=== PATIENT | female | born 1945 | race African-American/Black ===

== ENCOUNTER 2022-12-09 15:25 | Inpatient (IN) | payer MEDICARE ==
[2022-12-09 15:52] LABS: #Lymphocytes 0.6 thou/uL (1.20-3.40); #Monocytes 0.2 thou/uL (0.11-0.59); #Neutrophils 0.7 thou/uL (1.40-6.50); %Basophils 0.4 % (0.0-1.0); %Eosinophils 0.8 % (0.0-10.0); %Lymphocytes 38.9 % (21.0-51.0); %Monocytes 13.8 % (0.0-10.0); %Neutrophils 46.1 % (42.0-75.0); Hemoglobin 7.6 g/dL (12.0-16.0); Mean Corpuscular HGB CONC 33.6 g/dL (32.0-36.0); Mean Corpuscular Hemoglobin 30.7 pg (27.0-31.0); Mean Corpuscular Volume 91.2 fl (78.0-98.0); Mean Platelet Volume 15.9 fL (7.4-10.4); Platelet Count 23 10x3/uL (130-400); RBC Distribution Width 16.2 % (11.5-14.5); Red Blood Cell (RBC) Count 2.47 mill/uL (4.20-5.40); White Blood Cell (WBC) Count 1.5 10x3/uL (4.8-10.8)
[2022-12-09 16:12] LABS: Anisocytosis SLIGHT = 6-15 cells (100X) (0-5/hpf); MDiff Complete? YES; Platelet Morphology Comment Appears Decreased; Polychromasia SLIGHT = 2-3 cells (100X) (0-2/hpf); Reflex for Review?? YES; Schistocytes SLIGHT = 2-5 cells (100X) (0-1/hpf); Tear Drops SLIGHT = 2-5 cells (100X) (0-1/hpf)
[2022-12-09 16:15] LABS: ALT (SGPT) 11 U/L (8-55); AST (SGOT) 26 U/L (5-34); Albumin 3.4 g/dL (3.4-4.8); Alkaline Phosphatase 54 U/L (40-110); Anion Gap 13 mmol/L (10-20); BUN (Urea Nitrogen) 17 mg/dL (9.8-20.1); Bilirubin, Total 0.8 mg/dL (0.2-1.2); Calc. Creatinine Clearance 0 mL/min (70-130); Calcium 8.4 mg/dL (7.8-10.44); Carbon Dioxide 27 mmol/L (23-31); Chloride 95 mmol/L (98-107); Estimated GFR 9; Glucose 172 mg/dL (83-110); Potassium 3.1 mmol/L (3.5-5.1); Protein, Total 7.4 g/dL (5.8-8.1); Sodium 132 mmol/L (136-145)
[2022-12-09 16:34] LABS: CKMB 1.4 ng/mL (0-6.6)
[2022-12-09] MEDS ORDERED: Dextrose 50% Abboject 50 ML SYRINGE SLOW IVP PRN (20:13)
[2022-12-09] MEDS ORDERED: Dextrose 5% in Water 1,000 ML IV PRN (20:13)
[2022-12-09] MEDS ORDERED: HumaLOG 300 UNITS/3 ML VIAL SC PRN (20:13)
[2022-12-09 21:14] LABS: Iron 66 ug/dL (50-170); Iron Binding Capacity, Total 151 mcg/dL (265-497)
[2022-12-09 21:37] LABS: CKMB 0.9 ng/mL (0-6.6)
[2022-12-09 23:48] LABS: Hep B Surf Ag Non-Reactive S/CO (NonReactive)
[2022-12-09 23:49] LABS: HBSAg Index 0.23 S/CO (0-0.99)
[2022-12-09 23:50] LABS: HBSAB Concentration Less than 8.00 mIU/mL; Hep B Surf AB Non-Reactive (NonReactive)
[2022-12-10 00:25] LABS: Vitamin B12 Greater than 2000 pg/mL (211-911)
[2022-12-10] MEDS ORDERED: Zolpidem Tartrate 5 MG TAB PO SCH ×2 (01:00→02:00)
[2022-12-10] MEDS ORDERED: Zolpidem Tartrate 5 MG TAB ONE (01:06)
[2022-12-10 02:42] LABS: Ferritin 597.23 ng/mL (10-291)
[2022-12-10 03:01] LABS: Hep B Core Total Ab Reactive (NonReactive); Hep B Core Total Index 8.37 S/CO (0-0.79)
[2022-12-10 06:33] LABS: ALT (SGPT) 10 U/L (8-55); AST (SGOT) 22 U/L (5-34); Albumin 2.9 g/dL (3.4-4.8); Alkaline Phosphatase 47 U/L (40-110); Anion Gap 9 mmol/L (10-20); BUN (Urea Nitrogen) 8 mg/dL (9.8-20.1); Bilirubin, Total 1.1 mg/dL (0.2-1.2); Calc. Creatinine Clearance 0 mL/min (70-130); Calcium 7.9 mg/dL (7.8-10.44); Carbon Dioxide 28 mmol/L (23-31); Chloride 100 mmol/L (98-107); Estimated GFR 18; Globulin 3.4 g/dL (2.4-3.5); Glucose 132 mg/dL (83-110); Hemoglobin 9.7 g/dL (12.0-16.0); Mean Corpuscular Hemoglobin 30.6 pg (27.0-31.0); Mean Corpuscular Volume 92.8 fl (78.0-98.0); Mean Platelet Volume 15.2 fL (7.4-10.4); Platelet Count 22 10x3/uL (130-400); Potassium 3.3 mmol/L (3.5-5.1); Protein, Total 6.3 g/dL (5.8-8.1); RBC Distribution Width 15.4 % (11.5-14.5); Red Blood Cell (RBC) Count 3.15 mill/uL (4.20-5.40); Sodium 134 mmol/L (136-145); White Blood Cell (WBC) Count 1.4 10x3/uL (4.8-10.8)
[2022-12-10 06:55] LABS: CKMB 0.7 ng/mL (0-6.6)
[2022-12-10 06:56] LABS: Band 8 % (5-11); Lymphocytes 30 % (21-51); Metamyelocyte 1 % (0-0); Monocytes 5 % (0-10); Neutrophil 56 % (42-75)
[2022-12-10] MEDS ORDERED: Aspirin Chewable 81 MG TAB ONE (07:57)
[2022-12-10 08:24] LABS: MDiff Complete? YES
[2022-12-10] MEDS: Aspirin Chewable 81 MG TAB PO SCH (09:09)
[2022-12-10] MEDS ORDERED: Acetaminophen 325 MG TAB PO SCH (15:15)
[2022-12-10] MEDS ORDERED: tiZANidine HCl 4 MG TAB PO PRN (18:02)
[2022-12-10] MEDS: Carvedilol 25 MG TAB PO SCH (21:04)
[2022-12-10] MEDS: Zolpidem Tartrate 5 MG TAB PO PRN (21:05)
[2022-12-10] MEDS: Insulin Glargine 30 UNITS/0.3 ML VIAL SC SCH (21:05)
[2022-12-11 07:34] LABS: Hemoglobin 9.1 g/dL (12.0-16.0); Mean Corpuscular HGB CONC 34.1 g/dL (32.0-36.0); Mean Corpuscular Hemoglobin 31.6 pg (27.0-31.0); Mean Corpuscular Volume 92.5 fl (78.0-98.0); RBC Distribution Width 15.6 % (11.5-14.5); Red Blood Cell (RBC) Count 2.87 mill/uL (4.20-5.40)
[2022-12-11 07:37] LABS: Anion Gap 11 mmol/L (10-20); BUN (Urea Nitrogen) 15 mg/dL (9.8-20.1); Calc. Creatinine Clearance 19 mL/min (70-130); Calcium 8.1 mg/dL (7.8-10.44); Carbon Dioxide 27 mmol/L (23-31); Chloride 101 mmol/L (98-107); Estimated GFR 15; Glucose 141 mg/dL (83-110); Potassium 3.2 mmol/L (3.5-5.1); Sodium 136 mmol/L (136-145)
[2022-12-11 07:54] LABS: Phosphorus 1.5 mg/dL (2.3-4.7)
[2022-12-11 08:11] LABS: Anisocytosis SLIGHT = 6-15 cells (100X) (0-5/hpf); Band 4 % (5-11); Eosinophils 2 % (0-10); Hypochromia SLIGHT = 6-15 cells (100X) (0-5/hpf); Lymphocytes 55 % (21-51); MDiff Complete? YES; Mean Platelet Volume 15.5 fL (7.4-10.4); Monocytes 2 % (0-10); Neutrophil 37 % (42-75); Platelet Count 19 10x3/uL (130-400); Platelet Morphology Comment Appears Decreased; White Blood Cell (WBC) Count 1.5 10x3/uL (4.8-10.8)
[2022-12-11] MEDS ORDERED: PHOS-NAK 1 PKT PACK PO SCH (08:45)
[2022-12-11] MEDS: Aspirin Chewable 81 MG TAB PO SCH (08:52)
[2022-12-11] MEDS: Carvedilol 25 MG TAB PO SCH ×2 (08:52→21:20)
[2022-12-11] MEDS: NIFEdipine XL 60 MG TAB PO SCH (08:52)
[2022-12-11] MEDS ORDERED: Potassium Chloride 20 MEQ TAB PO SCH (10:30)
[2022-12-11] MEDS: hydrALAZINE 25 MG TAB PO SCH ×2 (14:11→21:19)
[2022-12-11] MEDS: Insulin Glargine 30 UNITS/0.3 ML VIAL SC SCH (21:22)
[2022-12-11] MEDS: Zolpidem Tartrate 5 MG TAB PO PRN (23:18)
[2022-12-12 05:09] LABS: Anion Gap 11 mmol/L (10-20); BUN (Urea Nitrogen) 21 mg/dL (9.8-20.1); Calc. Creatinine Clearance 15 mL/min (70-130); Calcium 8.2 mg/dL (7.8-10.44); Carbon Dioxide 26 mmol/L (23-31); Chloride 100 mmol/L (98-107); Estimated GFR 11; Glucose 175 mg/dL (83-110); Potassium 3.4 mmol/L (3.5-5.1); Sodium 134 mmol/L (136-145)
[2022-12-12 05:31] LABS: Anisocytosis SLIGHT = 6-15 cells (100X) (0-5/hpf); Band 6 % (5-11); Eosinophils 2 % (0-10); Hemoglobin 8.7 g/dL (12.0-16.0); Lymphocytes 34 % (21-51); MDiff Complete? YES; Mean Corpuscular HGB CONC 33.4 g/dL (32.0-36.0); Mean Corpuscular Hemoglobin 31.3 pg (27.0-31.0); Mean Corpuscular Volume 93.7 fl (78.0-98.0); Mean Platelet Volume 16.3 fL (7.4-10.4); Monocytes 8 % (0-10); Neutrophil 50 % (42-75); Platelet Count 18 10x3/uL (130-400); Platelet Morphology Comment Appears Decreased; RBC Distribution Width 15.8 % (11.5-14.5); Red Blood Cell (RBC) Count 2.77 mill/uL (4.20-5.40); White Blood Cell (WBC) Count 1.4 10x3/uL (4.8-10.8)
[2022-12-12] MEDS: NIFEdipine XL 60 MG TAB PO SCH (17:17)
[2022-12-12] MEDS: hydrALAZINE 25 MG TAB PO SCH ×3 (17:18→20:53)
[2022-12-12] MEDS: Aspirin Chewable 81 MG TAB PO SCH (17:18)
[2022-12-12] MEDS: Carvedilol 25 MG TAB PO SCH ×2 (17:19→20:54)
[2022-12-12] MEDS: Insulin Glargine 30 UNITS/0.3 ML VIAL SC SCH (20:52)
[2022-12-12] MEDS: Zolpidem Tartrate 5 MG TAB PO PRN (20:53)
[2022-12-13 05:43] LABS: Anion Gap 13 mmol/L (10-20); BUN (Urea Nitrogen) 14 mg/dL (9.8-20.1); Calc. Creatinine Clearance 21 mL/min (70-130); Calcium 8.1 mg/dL (7.8-10.44); Carbon Dioxide 21 mmol/L (23-31); Chloride 100 mmol/L (98-107); Estimated GFR 17; Glucose 141 mg/dL (83-110); Potassium 4.1 mmol/L (3.5-5.1); Sodium 130 mmol/L (136-145)
[2022-12-13] MEDS: hydrALAZINE 25 MG TAB PO SCH ×3 (08:19→20:21)
[2022-12-13] MEDS: NIFEdipine XL 60 MG TAB PO SCH (08:20)
[2022-12-13] MEDS: Carvedilol 25 MG TAB PO SCH ×2 (08:20→20:21)
[2022-12-13] MEDS: Aspirin Chewable 81 MG TAB PO SCH (08:20)
[2022-12-13 12:05] LABS: Hep C IgG Ab Non-Reactive (NonReactive); Hep C Index 0.29 S/CO (0-0.79)
[2022-12-13] MEDS: Zolpidem Tartrate 5 MG TAB PO PRN (20:21)
[2022-12-13] MEDS: Insulin Glargine 30 UNITS/0.3 ML VIAL SC SCH (20:22)
[2022-12-14] MEDS: Acetaminophen 325 MG TAB PO PRN ×2 (02:23→20:58)
[2022-12-14 12:29] LABS: Anion Gap 9 mmol/L (10-20); BUN (Urea Nitrogen) 8 mg/dL (9.8-20.1); Calc. Creatinine Clearance 36 mL/min (70-130); Calcium 8.4 mg/dL (7.8-10.44); Carbon Dioxide 30 mmol/L (23-31); Chloride 96 mmol/L (98-107); Estimated GFR 33; Glucose 121 mg/dL (83-110); Potassium 3.2 mmol/L (3.5-5.1); Sodium 132 mmol/L (136-145)
[2022-12-14] MEDS: NIFEdipine XL 60 MG TAB PO SCH (13:24)
[2022-12-14] MEDS: Aspirin Chewable 81 MG TAB PO SCH (13:25)
[2022-12-14] MEDS: hydrALAZINE 25 MG TAB PO SCH ×3 (13:25→20:55)
[2022-12-14] MEDS: Carvedilol 25 MG TAB PO SCH ×2 (13:25→20:54)
[2022-12-14] MEDS: Zolpidem Tartrate 5 MG TAB PO PRN (20:56)
[2022-12-14] MEDS: Insulin Glargine 30 UNITS/0.3 ML VIAL SC SCH (20:56)
[2022-12-15 05:04] LABS: #Lymphocytes 0.6 thou/uL (1.20-3.40); #Monocytes 0.1 thou/uL (0.11-0.59); #Neutrophils 0.5 thou/uL (1.40-6.50); %Basophils 0.7 % (0.0-1.0); %Lymphocytes 45.4 % (21.0-51.0); %Monocytes 11.3 % (0.0-10.0); %Neutrophils 41.6 % (42.0-75.0); Hemoglobin 8.8 g/dL (12.0-16.0); Mean Corpuscular HGB CONC 33.1 g/dL (32.0-36.0); Mean Corpuscular Hemoglobin 30.9 pg (27.0-31.0); Mean Corpuscular Volume 93.4 fl (78.0-98.0); Mean Platelet Volume 17.1 fL (7.4-10.4); Platelet Count 20 10x3/uL (130-400); RBC Distribution Width 15.6 % (11.5-14.5); Red Blood Cell (RBC) Count 2.84 mill/uL (4.20-5.40); White Blood Cell (WBC) Count 1.2 10x3/uL (4.8-10.8)
[2022-12-15 05:38] LABS: Anion Gap 12 mmol/L (10-20); BUN (Urea Nitrogen) 16 mg/dL (9.8-20.1); Calc. Creatinine Clearance 18 mL/min (70-130); Calcium 8.2 mg/dL (7.8-10.44); Carbon Dioxide 27 mmol/L (23-31); Chloride 97 mmol/L (98-107); Estimated GFR 14; Glucose 127 mg/dL (83-110); Potassium 3.7 mmol/L (3.5-5.1); Sodium 132 mmol/L (136-145)
[2022-12-15] MEDS: NIFEdipine XL 60 MG TAB PO SCH (08:27)
[2022-12-15] MEDS: Aspirin Chewable 81 MG TAB PO SCH (08:27)
[2022-12-15] MEDS: Carvedilol 25 MG TAB PO SCH ×2 (08:27→20:00)
[2022-12-15] MEDS: hydrALAZINE 25 MG TAB PO SCH ×3 (08:29→20:00)
[2022-12-15] MEDS: Zolpidem Tartrate 5 MG TAB PO PRN (19:59)
[2022-12-15] MEDS: Insulin Glargine 30 UNITS/0.3 ML VIAL SC SCH (20:00)
[2022-12-16 04:08] LABS: #Lymphocytes 0.6 thou/uL (1.20-3.40); #Monocytes 0.2 thou/uL (0.11-0.59); #Neutrophils 0.6 thou/uL (1.40-6.50); %Basophils 0.9 % (0.0-1.0); %Lymphocytes 43.1 % (21.0-51.0); %Monocytes 10.4 % (0.0-10.0); %Neutrophils 44.7 % (42.0-75.0); Hemoglobin 8.3 g/dL (12.0-16.0); Mean Corpuscular Hemoglobin 30.6 pg (27.0-31.0); Mean Corpuscular Volume 92.6 fl (78.0-98.0); Mean Platelet Volume 15.5 fL (7.4-10.4); Platelet Count 20 10x3/uL (130-400); RBC Distribution Width 15.5 % (11.5-14.5); White Blood Cell (WBC) Count 1.4 10x3/uL (4.8-10.8)
[2022-12-16 04:25] LABS: Anion Gap 11 mmol/L (10-20); BUN (Urea Nitrogen) 27 mg/dL (9.8-20.1); Calc. Creatinine Clearance 12 mL/min (70-130); Calcium 8.5 mg/dL (7.8-10.44); Carbon Dioxide 27 mmol/L (23-31); Chloride 97 mmol/L (98-107); Estimated GFR 9; Glucose 168 mg/dL (83-110); Potassium 3.8 mmol/L (3.5-5.1); Sodium 131 mmol/L (136-145)
[2022-12-16] MEDS: Aspirin Chewable 81 MG TAB PO SCH (11:01)
[2022-12-16] MEDS: Carvedilol 25 MG TAB PO SCH ×2 (11:02→20:20)
[2022-12-16] MEDS: NIFEdipine XL 60 MG TAB PO SCH (11:02)
[2022-12-16] MEDS: hydrALAZINE 25 MG TAB PO SCH ×3 (11:02→20:20)
[2022-12-16] MEDS ORDERED: Heparin 10,000 UNITS/ 10 ML VIAL ONE (11:52)
[2022-12-16] MEDS: Insulin Glargine 30 UNITS/0.3 ML VIAL SC SCH (20:13)
[2022-12-16] MEDS: Zolpidem Tartrate 5 MG TAB PO PRN (20:24)
[2022-12-17 05:37] VITALS: BMI 26.3
[2022-12-17] MEDS ORDERED: EPOETIN ALFA-EPBX (ESRD) 10,000 UNIT/ML VIAL SC SCH (09:00)
[2022-12-17] MEDS: Aspirin Chewable 81 MG TAB PO SCH (09:42)
[2022-12-17] MEDS: NIFEdipine XL 60 MG TAB PO SCH ×2 (09:42→21:37)
[2022-12-17] MEDS: hydrALAZINE 25 MG TAB PO SCH ×3 (09:42→21:37)
[2022-12-17] MEDS: Carvedilol 25 MG TAB PO SCH ×2 (09:43→21:37)
[2022-12-17] MEDS: Lisinopril 20 MG TAB PO SCH (21:37)
[2022-12-17] MEDS: Zolpidem Tartrate 5 MG TAB PO PRN (21:38)
[2022-12-17] MEDS: Insulin Glargine 30 UNITS/0.3 ML VIAL SC SCH (21:39)
[2022-12-18] MEDS: Carvedilol 25 MG TAB PO SCH (08:57)
[2022-12-18] MEDS: Aspirin Chewable 81 MG TAB PO SCH (08:57)
[2022-12-18] MEDS: Lisinopril 20 MG TAB PO SCH ×2 (08:57→22:09)
[2022-12-18] MEDS: hydrALAZINE 25 MG TAB PO SCH (08:57)
[2022-12-18] MEDS: NIFEdipine XL 60 MG TAB PO SCH ×2 (11:22→22:09)
[2022-12-18] MEDS: Acetaminophen 325 MG TAB PO PRN (11:22)
[2022-12-18] MEDS: Carvedilol 6.25 MG TAB PO SCH (22:08)
[2022-12-18] MEDS: Zolpidem Tartrate 5 MG TAB PO PRN (22:10)
[2022-12-18] MEDS: Insulin Glargine 30 UNITS/0.3 ML VIAL SC SCH (22:24)
[2022-12-19] MEDS: NIFEdipine XL 60 MG TAB PO SCH ×2 (07:33→20:19)
[2022-12-19] MEDS: Carvedilol 6.25 MG TAB PO SCH ×2 (07:33→20:18)
[2022-12-19] MEDS: Lisinopril 20 MG TAB PO SCH ×2 (07:33→20:18)
[2022-12-19 08:25] LABS: #Lymphocytes 0.7 thou/uL (1.20-3.40); #Monocytes 0.2 thou/uL (0.11-0.59); #Neutrophils 0.7 thou/uL (1.40-6.50); %Basophils 0.4 % (0.0-1.0); %Eosinophils 2.2 % (0.0-10.0); %Lymphocytes 44.5 % (21.0-51.0); %Monocytes 11.7 % (0.0-10.0); %Neutrophils 41.2 % (42.0-75.0); Hemoglobin 8.5 g/dL (12.0-16.0); Mean Corpuscular HGB CONC 32.1 g/dL (32.0-36.0); Mean Corpuscular Hemoglobin 29.7 pg (27.0-31.0); Mean Corpuscular Volume 92.5 fl (78.0-98.0); Mean Platelet Volume 13.8 fL (7.4-10.4); Platelet Count 31 10x3/uL (130-400); RBC Distribution Width 15.2 % (11.5-14.5); Red Blood Cell (RBC) Count 2.86 mill/uL (4.20-5.40); White Blood Cell (WBC) Count 1.6 10x3/uL (4.8-10.8)
[2022-12-19] MEDS ORDERED: EPOETIN ALFA-EPBX (ESRD) 10,000 UNIT/ML VIAL SC SCH (09:00)
[2022-12-19] MEDS: Aspirin Chewable 81 MG TAB PO SCH (13:16)
[2022-12-19] MEDS: Acetaminophen 325 MG TAB PO PRN (14:03)
[2022-12-19] MEDS ORDERED: Simethicone Chewable 80 MG TAB PO PRN (17:11)
[2022-12-19] MEDS ORDERED: Loperamide HCl 2 MG CAP PO SCH (19:45)
[2022-12-19] MEDS ORDERED: Saccharomyces boulardii 250 MG CAP PO SCH (19:45)
[2022-12-19] MEDS: Insulin Glargine 30 UNITS/0.3 ML VIAL SC SCH (20:18)
[2022-12-19] MEDS: Zolpidem Tartrate 5 MG TAB PO PRN (20:20)
[2022-12-20] MEDS: Acetaminophen 325 MG TAB PO PRN ×2 (04:47→13:47)
[2022-12-20 07:49] VITALS: BP 124/60; TEMP 98.5
[2022-12-20] MEDS: Aspirin Chewable 81 MG TAB PO SCH (08:10)
[2022-12-20] MEDS: Lisinopril 20 MG TAB PO SCH (08:10)
[2022-12-20] MEDS: NIFEdipine XL 60 MG TAB PO SCH (08:11)
[2022-12-20] MEDS: Carvedilol 6.25 MG TAB PO SCH (08:11)
[2022-12-20] MEDS ORDERED: Saccharomyces boulardii 250 MG CAP PO SCH (09:00)
[2022-12-20 10:38] LABS: SARS-CoV-2 NAA Rapid Test Not Detected (NotDetected)
== END 2022-12-20 13:54 | DRG 811 ==
LOC: ERS 15:25 → ERHOLD 20:08 → 2NO 12-10 12:28 → T4-B 12-16 16:26
PROVIDERS: ADMIT Student in an Organized Health Care Education/Training Program; ATTEND Hospitalist
PROC: 30233N1 Transfusion of Nonautologous Red Blood Cells into Peripheral Vein, Percutaneous Approach (ICD-10-PCS; principal; 2022-12-09)
PROC: 5A1D70Z Performance of Urinary Filtration, Intermittent, Less than 6 Hours Per Day (ICD-10-PCS; 2022-12-09)
PROC: 5A1D70Z Performance of Urinary Filtration, Intermittent, Less than 6 Hours Per Day (ICD-10-PCS; 2022-12-19)
DX: D46.9 Myelodysplastic syndrome, unspecified (principal); N18.6 End stage renal disease; D61.818 Other pancytopenia; I50.30 Unspecified diastolic (congestive) heart failure; I13.2 Hypertensive heart and chronic kidney disease with heart failure and with stage 5 chronic kidney disease, or end stage renal disease; E11.22 Type 2 diabetes mellitus with diabetic chronic kidney disease; E11.21 Type 2 diabetes mellitus with diabetic nephropathy; E87.6 Hypokalemia; E83.39 Other disorders of phosphorus metabolism; E11.40 Type 2 diabetes mellitus with diabetic neuropathy, unspecified; Z20.822 Contact with and (suspected) exposure to COVID-19; Z99.2 Dependence on renal dialysis
CPT/HCPCS: 36415; 36416; 36430; 71045; 71046; 80048; 80053; 82553; 82607; 82728; 83540; 83550; 83970; 84100; 84484; 85025; 85060; 86704; 86850; 86900; 86901; 87040; 90935; 93005; 93306; G0257; J1644; J1815; P9016; Q5105; U0002

== ENCOUNTER 2023-01-13 19:31 | Emergency (ER) | payer MEDICARE ==
[2023-01-13 20:11] LABS: #Lymphocytes 0.6 thou/uL (1.20-3.40); #Monocytes 0.2 thou/uL (0.11-0.59); %Eosinophils 1.2 % (0.0-10.0); %Lymphocytes 31.8 % (21.0-51.0); %Monocytes 9.3 % (0.0-10.0); %Neutrophils 57.7 % (42.0-75.0); Hemoglobin 6.9 g/dL (12.0-16.0); Mean Corpuscular HGB CONC 34.6 g/dL (32.0-36.0); Mean Corpuscular Hemoglobin 32.3 pg (27.0-31.0); Mean Corpuscular Volume 93.2 fl (78.0-98.0); Mean Platelet Volume 13.4 fL (7.4-10.4); Platelet Count 29 10x3/uL (130-400); RBC Distribution Width 16.1 % (11.5-14.5); Red Blood Cell (RBC) Count 2.13 mill/uL (4.20-5.40); White Blood Cell (WBC) Count 1.7 10x3/uL (4.8-10.8)
[2023-01-13 21:00] LABS: ALT (SGPT) 9 U/L (8-55); AST (SGOT) 35 U/L (5-34); Albumin 3.3 g/dL (3.4-4.8); Alkaline Phosphatase 57 U/L (40-110); Anion Gap 16 mmol/L (10-20); BUN (Urea Nitrogen) 13 mg/dL (9.8-20.1); Bilirubin, Total 0.6 mg/dL (0.2-1.2); Calc. Creatinine Clearance 0 mL/min (70-130); Calcium 8.8 mg/dL (7.8-10.44); Carbon Dioxide 26 mmol/L (23-31); Chloride 96 mmol/L (98-107); Estimated GFR 16; Globulin 5.2 g/dL (2.4-3.5); Glucose 216 mg/dL (83-110); Potassium 4.1 mmol/L (3.5-5.1); Protein, Total 8.5 g/dL (5.8-8.1); Sodium 134 mmol/L (136-145)
== END 2023-01-13 23:21 | disposition home or self-care (01) ==
LOC: ERS 19:31
DX: D64.9 Anemia, unspecified (principal); S01.02XA Laceration with foreign body of scalp, initial encounter; D72.819 Decreased white blood cell count, unspecified; E11.9 Type 2 diabetes mellitus without complications; W18.30XA Fall on same level, unspecified, initial encounter
CPT/HCPCS: 36430; 70450; 80053; 85025; 86850; 86900; 86901; 86920; 93005; 99285; P9016

== ENCOUNTER 2023-02-24 20:22 | Emergency (ER) | payer MEDICARE ==
[2023-02-24 20:47] LABS: #Monocytes 0.2 thou/uL (0.11-0.59); #Neutrophils 0.7 thou/uL (1.40-6.50); %Eosinophils 1.3 % (0.0-10.0); %Lymphocytes 43.5 % (21.0-51.0); %Neutrophils 43.6 % (42.0-75.0); Hemoglobin 6.5 g/dL (12.0-16.0); Mean Corpuscular Hemoglobin 32.7 pg (27.0-31.0); Mean Platelet Volume 11.7 fL (7.4-10.4); Red Blood Cell (RBC) Count 1.99 mill/uL (4.20-5.40); White Blood Cell (WBC) Count 1.5 10x3/uL (4.8-10.8)
[2023-02-24 20:56] LABS: Platelet Count 36 10x3/uL (130-400)
[2023-02-24 21:04] LABS: Manual Diff?? YES
[2023-02-24 21:08] LABS: ALT (SGPT) 21 U/L (8-55); AST (SGOT) 28 U/L (5-34); Albumin 3.3 g/dL (3.4-4.8); Alkaline Phosphatase 54 U/L (40-110); Anion Gap 9 mmol/L (10-20); BUN (Urea Nitrogen) 20 mg/dL (9.8-20.1); Bilirubin, Total 0.5 mg/dL (0.2-1.2); Calc. Creatinine Clearance 0 mL/min (70-130); Calcium 8.9 mg/dL (7.8-10.44); Carbon Dioxide 30 mmol/L (23-31); Chloride 98 mmol/L (98-107); Estimated GFR 16; Globulin 4.9 g/dL (2.4-3.5); Glucose 240 mg/dL (83-110); Potassium 3.4 mmol/L (3.5-5.1); Protein, Total 8.2 g/dL (5.8-8.1); Sodium 134 mmol/L (136-145)
[2023-02-24 21:29] LABS: Anisocytosis SLIGHT = 6-15 cells HPF (0-5); Band 3 % (5-11); CellaVision Operator ID LAB.JMM; Lymphocytes 45 % (21-51); Macrocytosis SLIGHT = 6-15 cells HPF (0-5); Monocytes 9 % (0-10); Neutrophil 43 % (42-75); Platelet Adequacy Comment Platelets Decreased; Polychromasia SLIGHT = 2-3 cells HPF (0-2); Total Cell Count 100
== END 2023-02-25 00:06 | disposition home or self-care (01) ==
LOC: ERS 20:22
DX: D64.9 Anemia, unspecified (principal); I50.9 Heart failure, unspecified
CPT/HCPCS: 36430; 80053; 85025; 86850; 86900; 86901; 86920; 99284; P9016; 36415